=== PATIENT | male | born 1945 | race Caucasian/White ===

== ENCOUNTER 2022-02-18 17:39 | Observation (INO) | payer OTHER, SELFPAY ==
[2022-02-18] VITALS (17 sets, daily range): BP systolic 101–155; BP diastolic 60–86; PULSE 66–96; RESP 11–24; TEMP 35.8; O2SAT 95–98
--- NOTE | ~2022-02-18 | CT_ITS ---
EXAMINATION: CT brain wo con DATE: 02/18/2022 19:33 INDICATION: lethargy X 2 days, confusion . TECHNIQUE: Computed tomography (CT) of the head was performed without intravenous contrast. The mA wa s adjusted according to patient size. Iterative reconstruction technique was employed. The dose-lengt h product was 605.33 mGy-cm. COMPARISON: 07/28/2005 FINDINGS: No acute intracranial hemorrhage. CSF density prominent bifrontal extra-axial spaces as can be seen w ith chronic subdural hemorrhage and cystic hygroma. No hydrocephalus, mass, or herniation. No acute ischemic infarct. Unremarkable dural venous sinus attenuation. No acute osseous abnormality. The aerated spaces are clear. Mild atrophy. Mild chronic white matter change. Atherosclerotic intracranial calcification. Left lens replacement. IMPRESSION: No acute intracranial process. Reviewed, dictated and finalized at location K.
--- NOTE | ~2022-02-18 | XR_ITS ---
EXAMINATION: XR chest 2V Exam Date/Time: 02/18/2022 19:40 CDT HISTORY: cough, SOB Comparison: CT abdomen and pelvis, same date. RESULT: Lines, tubes, and devices: None. Lungs and pleura: Increased linear and patchy opacities in the retrocardiac lung. Stable linear righ t basilar opacities likely representing atelectasis. Cardiomediastinal silhouette: Stable. Other: No acute osseous or upper abdominal finding. IMPRESSION: Increased left lower lung/retrocardiac opacities may reflect increased atelectasis or interval aspira tion. Reviewed, dictated and finalized at location K. IMPRESSION: Increased left lower lung/retrocardiac opacities may reflect increased atelecta sis or interval aspiration.
--- NOTE | ~2022-02-18 | CT_ITS ---
EXAMINATION: CT abdomen pelvis w con DATE: 02/18/2022 19:39 INDICATION: LLQ ABD pain, diarrhea TECHNIQUE: Computed tomography (CT) of the abdomen and pelvis was performed with 100 mL Omnipaque-350 intravenous contrast. Automated exposure control and iterative reconstruction technique were employe d. The dose-length product was 1286.05 mGy-cm. COMPARISON: None. FINDINGS: Lower thorax: Senescent change and dependent atelectasis. Small pericardial effusion coronary artery calcification. Liver: Normal. Biliary/Gallbladder: Gallbladder is normal. No bile duct dilation. Pancreas: No mass or duct dilation. Fatty infiltration of the pancreatic head. Spleen: Normal. Adrenals:No mass. Kidneys: No mass, stone, or hydronephrosis. Mild atrophy. GI tract: Antral wall edema. Asymmetric masslike thickening of the lateral aspect of the gastric fund us and body. No small or large bowel dilation. Normal appendix. Diverticulosis without diverticulitis . Mesentery/Peritoneum: No ascites, mass, or free air. Retroperitoneum: No mass. Atherosclerotic abdominal aortic and/or arterial calcifications. Pelvis: Bladder wall thickening likely due to osseous outlet compromise from prostatomegaly. Prosthet ic calcifications.. Soft Tissues: Uncomplicated small fat-containing inguinal hernias Bones: No acute osseous finding. IMPRESSION: Small pericardial effusion. Antral gastritis. Lateral gastric wall thickening, may be secondary to la ck of distention or an infiltrative mass. Consider referral for endoscopy. Reviewed, dictated and finalized at location K. IMPRESSION: Small pericardial effusion. Antral gastritis. Lateral gastric wall thickening, may be secondary to lack of distention or an infiltrative mass. Consider referr al for endoscopy.
--- NOTE | 2022-02-18 17:51 | ECG_ITS ---
Measurements Intervals [place] Rate: 99 P: 34 RI: 187 QRS: -48 QRSD: 89 T: 39 QT: 344 QTc: 441 Interpretive Statements SINUS RHYTHM LEFT ANTERIOR FASCICULAR BLOCK [QRS AXIS <= -45, QR IN I, RS IN II] NONSPECIFIC ST & T-WAVE ABNORMALITY NO PREVIOUS ECG AVAILABLE FOR COMPARISON Electronically Signed On 02-18-2022 20:03:31 CDT by Elva Hassan M.D.
[2022-02-18 17:57] LABS: Basophils Percent Auto 0.4 % (0.2-1.2); Eosinophils Absolute Auto 0.1 K/mm3 (0-0.3); Eosinophils Percent Auto 0.9 % (0-4.4); Hemoglobin 16.4 g/dL (14.0-18.0); Immature Granulocyte Absolute 0.02 K/mm3 (0.00-0.031); Immature Granulocyte Percent A 0.2 % (0-0.5); Lymphocytes Absolute Auto 2.39 K/mm3 (0.9-3.2); Lymphocytes Percent Auto 29.1 % (18.3-44.2); Mean Corpuscular HGB Conc 33.5 g/dl (32-36); Mean Corpuscular Hemoglobin 27.6 pg (26-34); Mean Corpuscular Volume 82.5 fl (80-100); Mean Platelet Volume 11.1 fl (7.4-10.4); Monocytes Absolute Auto 0.8 K/mm3 (0.1-0.6); Monocytes Percent Auto 9.6 % (2.6-8.5); Neutrophils Absolute Auto 4.9 K/mm3 (1.3-6.7); Neutrophils Percent Auto 59.8 % (45.5-73.1); Platelet Count Result 211 k/mm3 (150-375); Red Blood Count 5.94 M/mm3 (4.6-6.20); Red Cell Distribution Width 16.6 % (11.5-14.5); White Blood Count 8.2 K/mm3 (4.5-10.0)
[2022-02-18 18:06] LABS: Alanine Aminotransferase 31 U/L (6-50); Albumin Level 4.4 g/dL (3.5-5.1); Alkaline Phosphatase 89 U/L (38-126); Anion Gap 15 mmol/L (8-16); Aspartate Amino Transferase 37 U/L (17-59); Bilirubin,Total 0.7 mg/dL (0.2-1.3); Blood Urea Nitrogen 39 mg/dL (9-20); Calcium 9.5 mg/dL (8.4-10.2); Carbon Dioxide 23 mmol/L (22-30); Chloride 104 mmol/L (98-107); Estimated CRCL calculation 60 ml/min; Estimated Glomerular Filt Rate > 60; Glucose 145 mg/dL (65-110); Potassium 3.1 mmol/L (3.4-5.0); Sodium 142 mmol/L (137-145)
[2022-02-18 18:07] LABS: Partial Thromboplastin Time 26.1 SECONDS (22.3-36.8); Prothrombin Time 13.2 Seconds (11.1-14.7)
--- NOTE | 2022-02-18 18:57 | ED.GENADULT ---
HPI - General Adult General Chief complaint: Weakness Stated complaint: weakness, black stools Time Seen by Provider: 02/18/22 18:18 Source: patient, family and old records reviewed Mode of arrival: ambulatory Limitations: clinical condition History of Present Illness HPI narrative: Patient is a 77-year-old male who presents to the ED with report of weakness. Patient son at bedside assisted in providing patient's information. Patient reportedly had his COVID booster vaccine 1 week ago. He began feeling unwell the next day. He has complained of abdominal pain, weakness, malaise, diarrhea, poor appetite, and diffuse pain to his son. Son brought him to the ED tonight. Patient is currently A&O x2 in the ED. Son reports this is abnormal for him and he is usually much sharper. Per patient's records, he does have a history of mild cognitive impairment. Son does also report patient has had black stools, but this was after patient took several doses of Pepto-Bismol. No bright red bleeding. Patient denies any chest pain or difficulty breathing at this time. Related Data Home Medications Medication Instructions Recorded Confirmed albuterol sulfate 90 mcg/actuation 2 inhalation inhalation Q4-6H PRN 10/31/19 02/19/22 aerosol inhaler Shortness Of Breath Or Wheezing aspirin 81 mg tablet,delayed 81 mg PO DAILY 10/31/19 02/19/22 release (Adult Low Dose Aspirin) budesonide-formoterol HFA 80 2 puff inhalation Q12H 10/31/19 02/19/22 mcg-4.5 mcg/actuation aerosol inhaler (Symbicort) cetirizine 10 mg tablet 5 mg PO DAILY PRN Allergy Symptoms 10/31/19 02/19/22 cholecalciferol (vitamin D3) 50 100 mcg PO DAILY 10/31/19 02/19/22 mcg (2,000 unit) tablet etodolac 400 mg tablet 200 mg PO BID 10/31/19 02/19/22 tiotropium bromide 1.25 2 puff inhalation DAILY 10/31/19 02/19/22 mcg/actuation mist for inhalation (Spiriva Respimat) acetaminophen 500 mg tablet 500 mg PO QHS 02/19/22 02/19/22 cilostazol 100 mg tablet 100 mg PO BID 02/19/22 02/19/22 methocarbamol 500 mg tablet 500 mg PO QID 02/19/22 02/19/22 pregabalin 150 mg capsule (Lyrica) 150 mg PO HS 02/19/22 02/19/22 Allergies Allergy/AdvReac Type Severity Reaction Status Date / Time codeine Allergy Unknown Unknown Verified 02/18/22 18:20 Review of Systems Review of Systems: CONSTITUTIONAL: Denies fever, chills, or sweats. CARDIOVASCULAR: Denies chest pain. RESPIRATORY: Denies dyspnea. GASTROINTESTINAL: Reports lower abdominal pain, diarrhea, black stool. Denies nausea, vomiting, rectal bleeding. MUSCULOSKELETAL: Reports pain all over. NEUROLOGIC: Reports slight confusion, generalized weakness. ROS unobtainable: Yes unobtainable due to medical condition PMFSH Past Medical History Medical History Benign essential hypertension BMI 40.0-44.9, adult Body mass index 45.0-49.9, adult Chronic obstructive pulmonary disease, unspecified Mild cognitive impairment with memory loss Mixed hyperlipidemia Morbid obesity Obstructive sleep apnea (adult) (pediatric) Surgical History Surgical History S/P peripheral artery angioplasty with stent placement Social History Social History Smoking status: Former smoker Tobacco type: cigarettes Smoking end date: 06/21/09 Alcohol intake: never Substance use: never Substance use type: does not use Spiritual care concerns: No Exam Narrative: GENERAL: Mildly ill appearing, obese, non-toxic, in no acute distress. HEAD: Normocephalic, atraumatic. EYES: PERRL/EOMI, conjunctivae clear bilaterally. No nystagmus. THROAT: Pharynx clear, no exudate. MMs dry. NECK: Supple. No adenopathy, no masses. RESPIRATORY: Airway patent, respirations nonlabored. Occasional rhonchi throughout bilateral lower lung riley. CARDIOVASCULAR: Regular rate and rhythm without murmurs, rubs, or gallop
[2022-02-18 19:50] LABS: NT Pro B Type Natriuretic Pept 69 pg/mL (5-100)
[2022-02-18 20:02] LABS: Troponin I 0.062 ng/mL (0.000-0.034)
[2022-02-18] MEDS: ONDANSETRON INJ 4 MG/2 ML VIAL IV PUSH (20:21)
[2022-02-18] MEDS: SODIUM CHLORIDE 0.9% IV 1,000 ML 999 ML IV CONT ×2 (20:21→22:05)
[2022-02-18] MEDS: POTASSIUM CHLORIDE INJ 40 MEQ in SODIUM CHLORIDE 0.9% IV 500 ML 130 MEQ IVPB (20:53)
[2022-02-18 22:20] LABS: Add Urine Microscopic? YES; Appearance Urine Clear (Clear); Bilirubin Urine 3+ (Negative); Blood Urine Negative (Negative); Color Urine Yellow (Yellow); Glucose Urine UA Negative (Negative); Ketones Urine Negative (Negative); Leukocyte Esterase Ur Negative LEU/UL (Negative); Nitrate Urine Negative (Negative); Protein Urine Trace mg/dL (Negative); Urobilinogen Urine 0.2 mg/dL (<2.0); pH Urine 5.5 (5.0-9.0)
[2022-02-18 22:24] LABS: Mucus Urine Few /lpf; RBC Urine 0-2 /hpf (0-2); Squamous Epithelial Cell Urine Rare /hpf (Few); WBC Urine 0-3 /hpf
[2022-02-18 22:28] LABS: Creatine Kinase 202 U/L (55-170)
[2022-02-18 22:35] LABS: D Dimer 0.67 ug/mL (<0.48)
[2022-02-18 22:54] LABS: Troponin I 0.064 ng/mL (0.000-0.034)
[2022-02-18 22:55] LABS: SARS-CoV-2 RNA PCR Positive
--- NOTE | 2022-02-18 23:26 | PM.IMHP ---
H&P: HPI History of Present Illness Date/Time: 02/18/22 23:26 Chief Complaint: Weakness Narrative: 77-year-old male with past medical history significant for COPD, dementia, hyperlipidemia, obstructive sleep apnea and hypertension is presenting with weakness. Patient received discovered booster about a week ago and began feeling unwell shortly after. Patient denies any chest pain or shortness of breath. He is complaining of abdominal pain with associated diarrhea, decreased p.o. intake, generalized weakness and malaise. Son is at bedside in the ER and provided some extra history. Apparently patient has had some black stools but no red blood per rectum. Son also states that although patient has a cognitive impairment at baseline, he usually is alert and oriented x3. In the ER, he was only alert and oriented x2 and unable to report the year. In the ER, he was given a L of fluids and seemed to improve. Fecal occult blood test was negative. Troponin was mildly elevated at 0.062, repeat 3 hours later was essentially unchanged at 0.064. Patient was found to be COVID positive in the ER and this was thought to be the etiology of his symptoms. However, due to the elevated troponin, it was thought the patient would need a cardiac evaluation. Patient is being admitted for Cardiology evaluation as well as supportive care for positive COVID status. Review of Systems Review of Systems: 12 point review of systems was assessed and was negative except as noted in the HPI [facility] Past Medical History Medical History Benign essential hypertension BMI 40.0-44.9, adult Body mass index 45.0-49.9, adult Chronic obstructive pulmonary disease, unspecified Mild cognitive impairment with memory loss Mixed hyperlipidemia Morbid obesity Obstructive sleep apnea (adult) (pediatric) Surgical History Surgical History S/P peripheral artery angioplasty with stent placement Social History Social History Smoking status: Former smoker Tobacco type: cigarettes Smoking end date: 06/21/09 Alcohol intake: never Substance use: never Substance use type: does not use Spiritual care concerns: No Meds Home Medications and Allergies Home Medications Medication Instructions Recorded Confirmed Type albuterol sulfate 90 mcg/actuation 2 inhalation inhalation Q4-6H PRN 10/31/19 02/19/22 History aerosol inhaler Shortness Of Breath Or Wheezing aspirin 81 mg tablet,delayed 81 mg PO DAILY 10/31/19 02/19/22 History release (Adult Low Dose Aspirin) budesonide-formoterol HFA 80 2 puff inhalation Q12H 10/31/19 02/19/22 History mcg-4.5 mcg/actuation aerosol inhaler (Symbicort) cetirizine 10 mg tablet 5 mg PO DAILY PRN Allergy Symptoms 10/31/19 02/19/22 History cholecalciferol (vitamin D3) 50 100 mcg PO DAILY 10/31/19 02/19/22 History mcg (2,000 unit) tablet etodolac 400 mg tablet 200 mg PO BID 10/31/19 02/19/22 History omeprazole 20 mg capsule,delayed 40 mg PO DAILY 10/31/19 02/19/22 History release tiotropium bromide 1.25 2 puff inhalation DAILY 10/31/19 02/19/22 History mcg/actuation mist for inhalation (Spiriva Respimat) acetaminophen 500 mg tablet 500 mg PO QHS 02/19/22 02/19/22 History amlodipine 5 mg tablet 5 mg PO DAILY 02/19/22 02/19/22 History cilostazol 100 mg tablet 100 mg PO BID 02/19/22 02/19/22 History methocarbamol 500 mg tablet 500 mg PO QID 02/19/22 02/19/22 History pregabalin 150 mg capsule (Lyrica) 150 mg PO HS 02/19/22 02/19/22 History Allergies Allergy/AdvReac Type Severity Reaction Status Date / Time codeine Allergy Unknown Unknown Verified 02/18/22 18:20 Vital Signs Vital Signs - 24 hr 02/18/22 17:44 02/18/22 18:19 02/18/22 18:23 Temperature 96.4 F L Pulse Rate 94 93 89 Respiratory Rate 18 22 H Blood Pressure 144/75 H P
[2022-02-19] VITALS (14 sets, daily range): BP systolic 99–172; BP diastolic 55–82; PULSE 61–81; RESP 16–88; TEMP 36.4–36.9; O2SAT 94–99; BMI 42.2
--- NOTE | 2022-02-19 | ECHO_ITS ---
Patient Info Name: Nile Fermin Age: 77 years : 1945 Gender: Male Ht: 65 in Wt: 253 lbs BSA: 2.35 m2 HR: 92 bpm BP: 99 / 66 mmHg Heart Rhythm: Sinus Rhythm Technical Quality: Poor Exam Date: 02/19/2022 3:01 PM Exam Location: [facility] Pul[facility] Exam Room: [facility]– [place] Patient Status: Inpatient Admit Date: 02/18/2022 Staff Ordering Physician: Tyree Tejeda MD Dockmaster: Josefina Sofia RDCS Attending Provider: Lulu Tracy Referring Physician: Ileana FITZPATRICK; Exam Type: CA echo dop color flow w con Study Info Indications - oericardial effusion elevated troponins covid Complete two-dimensional, color flow and Doppler transthoracic echocardiogram is performed with contrast to opacify the left ventricle and to improve the deliniation of the left ventricle endocardial borders. Contrast/Agitated Saline Contrast/Ag. Saline: Definity Amount: 2.00 ml Administered By: Josefina Sofia [facility] Existing IV Access: Yes IV Access Condition: patent with no signs of infiltration Reason for Poor Study: patient body habitus Summary 1. Normal left ventricular size with mild concentric hypertrophy. Good systolic function of all segments with an ejection fraction of 71%. No segmental wall motion abnormalities. Diastolic function indeterminate. 2. Mild right ventricular enlargement and hypokinesis. 3. Calcified aortic root. 4. No significant valve disease. 5. Mild right ventricular systolic pressure is 32 mmHg. 6. Normal sinus rhythm. 7. Technically difficult study; limited views. Left Ventricle Left ventricular chamber dimension is normal. Left ventricular systolic function is normal, estimated at 65-70%. There is mildly increased left ventricular wall thickness. Left ventricular septal wall motion is normal. The left ventricular diastolic function is indeterminate. Right Ventricle Right ventricular chamber dimension is mildly enlarged. Right ventricular systolic function is reduced. Left Atria Left atrial chamber dimension is normal. Right Atria Right atrial chamber dimension is normal. Aortic Valve The aortic valve is trileaflet. There is no aortic valve sclerosis. There is no aortic valve stenosis. There is no aortic valve regurgitation. Pulmonic Valve The pulmonic valve is normal. There is no pulmonic valve stenosis. There is trace pulmonic regurgitation. Mitral Valve The mitral valve has normal leaflets. There is no mitral valve stenosis. There is trace mitral valve regurgitation. Tricuspid Valve The tricuspid valve leaflets are normal. There is no significant tricuspid valve stenosis. There is trace tricuspid valve regurgitation. No pulmonary hypertension, estimated pulmonary arterial systolic pressure is 33 mmHg. Pericardium/Pleural The pericardium appears normal. There is no pericardial effusion. Inferior Vena Cava Not well visualized inferior vena cava with >50% collapse upon inspiration consistent with Empty right atrial pressure, 10 mmHg. Aorta The aortic root size at the sinus of Valsalva is normal. The prox ascending aorta size is normal. There is mild aortic atherosclerosis. Left Ventricular Outflow Tract Name Value Normal LVOT 2D
--- NOTE | 2022-02-19 01:29 | ADMGEN ---
This patient, Nile Fermin, was admitted to IMU Room 232-01. Patient/family oriented to hospital policies and general routines including ID bracelet, bed and alarms, visiting hours, pain management, procedures, bathroom and other care routines, personal items, smoking policy, room service/diet, and visiting hours. Information on how to activate the Rapid Response Team has been discussed. Patient/Family are encouraged to report perceived risks to care and to ask questions if they do not understand what they are told or what they should do.
[2022-02-19] MEDS: oxyCODONE/ACETAMINOPHEN (*CRX) 5-325 MG TABLET 1 TABLET PO (02:07)
[2022-02-19 02:19] LABS: Troponin I 0.051 ng/mL (0.000-0.034)
[2022-02-19] MEDS: SODIUM CHLORIDE 0.9% IV 1,000 ML 100 ML IV CONT ×2 (07:58→17:22)
[2022-02-19] MEDS: CHOLECALCIFEROL 1,000 UNITS TABLET 4000 UNITS PO (07:59)
[2022-02-19] MEDS: methocarbamoL 500 MG TABLET PO ×4 (08:00→20:39)
[2022-02-19] MEDS: cilostazoL 100 MG TABLET PO ×2 (08:00→17:21)
[2022-02-19] MEDS: ASPIRIN 81 MG ENTERIC TABLET PO (08:01)
[2022-02-19] MEDS: amLODIPine BESYLATE 5 MG TABLET PO (08:01)
[2022-02-19] MEDS: ENOXAPARIN 40 MG/0.4 ML SYRINGE SUB-Q (08:01)
[2022-02-19] MEDS: LORATADINE 5 MG TABLET PO (08:01)
[2022-02-19] MEDS: PANTOPRAZOLE 40 MG TABLET PO (08:01)
[2022-02-19] MEDS: UMECLIDINIUM BROMIDE 62.5 MCG ELLIPTA 1 PUFF INHALATION (08:33)
[2022-02-19] MEDS: FLUTICASONE/SALMETEROL 45-21 MCG INHALER 1 PUFF 2 PUFF INHALATION ×2 (08:33→21:30)
[2022-02-19 08:37] LABS: Basophils Absolute Auto 0.1 K/mm3 (0.0-0.1); Basophils Percent Auto 0.7 % (0.2-1.2); Eosinophils Absolute Auto 0.1 K/mm3 (0-0.3); Eosinophils Percent Auto 1.2 % (0-4.4); Hematocrit 43.7 % (42.0-52.0); Hemoglobin 14.2 g/dL (14.0-18.0); Immature Granulocyte Absolute 0.01 K/mm3 (0.00-0.031); Immature Granulocyte Percent A 0.1 % (0-0.5); Lymphocytes Absolute Auto 2.43 K/mm3 (0.9-3.2); Lymphocytes Percent Auto 35.2 % (18.3-44.2); Mean Corpuscular HGB Conc 32.5 g/dl (32-36); Mean Corpuscular Hemoglobin 27.2 pg (26-34); Mean Corpuscular Volume 83.6 fl (80-100); Mean Platelet Volume 11.1 fl (7.4-10.4); Monocytes Absolute Auto 0.8 K/mm3 (0.1-0.6); Monocytes Percent Auto 11.4 % (2.6-8.5); Neutrophils Absolute Auto 3.6 K/mm3 (1.3-6.7); Neutrophils Percent Auto 51.4 % (45.5-73.1); Platelet Count Result 157 k/mm3 (150-375); Red Blood Count 5.23 M/mm3 (4.6-6.20); Red Cell Distribution Width 15.8 % (11.5-14.5); White Blood Count 6.9 K/mm3 (4.5-10.0)
[2022-02-19 08:51] LABS: Anion Gap 12 mmol/L (8-16); Blood Urea Nitrogen 28 mg/dL (9-20); CRP < 0.5 mg/dL (<1.0); Calcium 8.8 mg/dL (8.4-10.2); Carbon Dioxide 21 mmol/L (22-30); Chloride 109 mmol/L (98-107); Estimated CRCL calculation 79 ml/min; Estimated Glomerular Filt Rate > 60; Glucose 95 mg/dL (65-110); Potassium 3.4 mmol/L (3.4-5.0); Sodium 142 mmol/L (137-145)
--- NOTE | 2022-02-19 09:17 | PM.CNCAR ---
Assessment and Plan Assessment and plan (1) COVID-19: Code(s): U07.1 - COVID-19 Status: Acute (2) Elevated troponin: Code(s): R77.8 - Other specified abnormalities of plasma proteins Status: Acute (3) S/P peripheral artery angioplasty with stent placement: Code(s): Z95.820 - Peripheral vascular angioplasty status with implants and grafts Status: Acute (4) Obstructive sleep apnea (adult) (pediatric): Code(s): G47.33 - Obstructive sleep apnea (adult) (pediatric) Status: Acute (5) Mixed hyperlipidemia: Code(s): E78.2 - Mixed hyperlipidemia Status: Acute (6) Chronic obstructive pulmonary disease, unspecified: Code(s): J44.9 - Chronic obstructive pulmonary disease, unspecified Status: Acute (7) Benign essential hypertension: Code(s): I10 - Essential (primary) hypertension Status: Acute (8) Obesity (BMI 30-39.9): Code(s): E66.9 - Obesity, unspecified Status: Acute History of Present Illness History of Present Illness Consult date/time: 02/19/22 09:17 Requesting physician: Lulu Tracy APN-C Consult reason: Other (elevated trop) Reason For Visit: COVID-19,Generalized weakness,Elevated Troponin Narrative: 77-year-old patient with past medical history of hearing loss, dementia, COPD, sleep apnea, hypertension presents to the hospital with not feeling well and tested positive for COVID. Apparently patient received booster dose about a week ago and started to feel shortly after that weakness and unwell. Denied chest pain or shortness of breath. Was complaining of some abdominal pain and diarrhea, generalized weakness, loss of appetite. Reported that he had also black stools but no blood per rectum. Reported in the ER that he was alert oriented x2 and was not able to mention what year was. Chest x-ray reviewed analyzed myself shows opacity in the left lower lobe that could represent aspiration. CT scan of abdomen and pelvis showed small pericardial effusion. EKG reviewed analyze myself shows sinus rhythm, possible old inferior SC, no ischemic changes. BUN 39, creatinine 1, normal hemoglobin and white cell count Troponins mildly elevated 0.062, 0.064, 0.051 Review of Systems Review of Systems: ROS unobtainable: Yes unobtainable due to mental status and other ( history of dementia and patient cannot hear anything.) [facility] Past Medical History Medical History Benign essential hypertension BMI 40.0-44.9, adult Body mass index 45.0-49.9, adult Chronic obstructive pulmonary disease, unspecified Mild cognitive impairment with memory loss Mixed hyperlipidemia Morbid obesity Obstructive sleep apnea (adult) (pediatric) Surgical History Surgical History S/P peripheral artery angioplasty with stent placement Social History Social History Smoking status: Former smoker Tobacco type: cigarettes Smoking end date: 06/21/09 Alcohol intake: never Substance use: never Substance use type: does not use Spiritual care concerns: No Meds Home Medications and Allergies Home Medications Medication Instructions Recorded Confirmed Type albuterol sulfate 90 mcg/actuation 2 inhalation inhalation Q4-6H PRN 10/31/19 02/19/22 History aerosol inhaler Shortness Of Breath Or Wheezing aspirin 81 mg tablet,delayed 81 mg PO DAILY 10/31/19 02/19/22 History release (Adult Low Dose Aspirin) budesonide-formoterol HFA 80 2 puff inhalation Q12H 10/31/19 02/19/22 History mcg-4.5 mcg/actuation aerosol inhaler (Symbicort) cetirizine 10 mg tablet 5 mg PO DAILY PRN Allergy Symptoms 10/31/19 02/19/22 History cholecalciferol (vitamin D3) 50 100 mcg PO DAILY 10/31/19 02/19/22 History mcg (2,000 unit) tablet etodolac 400 mg tablet 200 mg PO BID 10/31/19 02/19/22 Histo
[2022-02-19] MEDS: ALBUTEROL SULFATE (*SP) AEROSOL 1 PUFF 2 PUFF INHALATION ×2 (10:11→21:41)
[2022-02-19] MEDS: PERFLUTREN LIPID MICROSPHERES 1.5 ML VIAL DILUTED TO 10 ML TOTAL VOLUME IV PUSH (14:55)
--- NOTE | 2022-02-19 15:10 | PM.IMPN ---
Progress Note: A&P Assessment and Plan (1) COVID-19: Code(s): U07.1 - COVID-19 Status: Acute Assessment and Plan: - Continue supportive care. - Not currently requiring supplemental oxygenation. - Dimer is elevated at 0.67, but can be adjusted for age according to protocol and is below the cutoff, and given that his respiratory status is stable, no further testing for VTE is needed. - CRP is low. - Trop is elevated, cardiology has evaluated and has ordered an ECHO, Ischemic evaluation that can be done as outpatient once he recovers from covid. They recommend continuation of ASA, amlodipine and to continue pletal. - Continue IVF NS at 100 ml/hr for now, appears euvolemic. (2) Generalized weakness: Code(s): R53.1 - Weakness Status: Acute Assessment and Plan: - In setting of being COVID positive. - Supportive care only. (3) Elevated troponin: Code(s): R77.8 - Other specified abnormalities of plasma proteins Status: Acute Assessment and Plan: - Trop is elevated, cardiology has evaluated and has ordered an ECHO, Ischemic evaluation that can be done as outpatient once he recovers from covid. They recommend continuation of ASA, amlodipine and to continue pletal. (4) Obstructive sleep apnea (adult) (pediatric): Code(s): G47.33 - Obstructive sleep apnea (adult) (pediatric) Status: Acute Assessment and Plan: - Home CPAP settings. (5) Mild cognitive impairment with memory loss: Code(s): G31.84 - Mild cognitive impairment, so stated Status: Chronic Assessment and Plan: - Difficult to obtain ROS;. (6) Mixed hyperlipidemia: Code(s): E78.2 - Mixed hyperlipidemia Status: Acute Assessment and Plan: - Heart healthy diet. (7) Chronic obstructive pulmonary disease, unspecified: Code(s): J44.9 - Chronic obstructive pulmonary disease, unspecified Status: Acute Assessment and Plan: - Continue home medications. (8) Benign essential hypertension: Code(s): I10 - Essential (primary) hypertension Status: Acute Assessment and Plan: - Currently well controlled (9) Obesity (BMI 30-39.9): Code(s): E66.9 - Obesity, unspecified Status: Acute Assessment and Plan: - Heart healthy diet. - Recommend lifestyle changes. (10) Osteoarthritis, generalized: Code(s): M15.9 - Polyosteoarthritis, unspecified Status: Chronic Assessment and Plan: - prn pain treatment as needed. Time Spent With Patient Time with patient: 15 - 25 minutes Subjective Date/time seen: 02/19/22 1022 This pt. was examined at the bedside today in interval assessment after being admitted to the hospital with COVID and also having a complaint of blood in his stool. He has no current complaints today with exception of his persistent cough and congestion in his chest. He denies any further bloody stools and he denies any CP, dyspnea, N/V/D/headache, dizziness, lightheadedness. Review of Systems Review of Systems: All systems reviewed & are unremarkable except as noted in HPI and below Exam Const: General: comfortable and no acute distress HENMT: Ears: TM's normal bilaterally General nose exam: Normal nares present Mouth: Yes moist mucous membranes Eyes: General: appearance normal, both eyes and all related structures Sclera: sclerae normal Pupils: Equal, round and reactive pupils present EOM: EOMs intact bilaterally Neck: Neck: supple and no JVD Thyroid: thyroid normal Resp: Effort & Inspection: normal respiratory effort Auscultation: crackles on the right at the base, on the left at the base and bilateral and rhonchi throughout Cardio: Rate: regular rate Rhythm: regular rhythm Heart sounds: no gallops, no murmurs and no rubs GI: Inspection: non-distended GI Palp: Yes Soft to palpation, No Tenderness to palpation present (GI) and No Guarding due to palpation present (GI) Auscul
--- NOTE | 2022-02-19 17:32 | PC.NURSE ---
ORDERS TO TRANSFER TO [facility] / TELE - REPORT GIVEN TO UMESH DUNBAR RN- PT TRANSFERRED TO ROOM 258 VIA BED ACCOMPANIED BY STAFF- PERSONAL BELONGINGS WITH PT -
[2022-02-19] MEDS: PREGABALIN (*CRX) 75 MG CAPSULE 150 MG PO (20:35)
[2022-02-19] MEDS: ACETAMINOPHEN 500 MG TABLET PO (20:38)
[2022-02-20] VITALS (13 sets, daily range): BP systolic 140–182; BP diastolic 61–76; PULSE 57–88; RESP 16–20; TEMP 36.1–36.8; O2SAT 94–98
[2022-02-20] MEDS: amLODIPine BESYLATE 5 MG TABLET PO (05:21)
[2022-02-20 05:42] LABS: Basophils Percent Auto 0.4 % (0.2-1.2); Eosinophils Absolute Auto 0.1 K/mm3 (0-0.3); Eosinophils Percent Auto 2.2 % (0-4.4); Hematocrit 37.7 % (42.0-52.0); Hemoglobin 12.3 g/dL (14.0-18.0); Immature Granulocyte Absolute 0.01 K/mm3 (0.00-0.031); Immature Granulocyte Percent A 0.2 % (0-0.5); Immature Platelet Fraction Pct 5.9 % (0.9-11.2); Lymphocytes Absolute Auto 1.73 K/mm3 (0.9-3.2); Lymphocytes Percent Auto 34.1 % (18.3-44.2); Mean Corpuscular HGB Conc 32.6 g/dl (32-36); Mean Corpuscular Hemoglobin 27.6 pg (26-34); Mean Corpuscular Volume 84.7 fl (80-100); Mean Platelet Volume 10.5 fl (7.4-10.4); Monocytes Absolute Auto 0.6 K/mm3 (0.1-0.6); Monocytes Percent Auto 11.6 % (2.6-8.5); Neutrophils Absolute Auto 2.6 K/mm3 (1.3-6.7); Neutrophils Percent Auto 51.5 % (45.5-73.1); Platelet Count Result 131 k/mm3 (150-375); Red Blood Count 4.45 M/mm3 (4.6-6.20); Red Cell Distribution Width 15.7 % (11.5-14.5); White Blood Count 5.1 K/mm3 (4.5-10.0)
[2022-02-20 06:07] LABS: Alanine Aminotransferase 22 U/L (6-50); Albumin Level 3.1 g/dL (3.5-5.1); Alkaline Phosphatase 62 U/L (38-126); Anion Gap 7 mmol/L (8-16); Aspartate Amino Transferase 21 U/L (17-59); Bilirubin,Total 0.5 mg/dL (0.2-1.3); Blood Urea Nitrogen 15 mg/dL (9-20); Calcium 8.2 mg/dL (8.4-10.2); Carbon Dioxide 21 mmol/L (22-30); Chloride 113 mmol/L (98-107); Estimated CRCL calculation 89 ml/min; Estimated Glomerular Filt Rate > 60; Glucose 90 mg/dL (65-110); Lipase 67 U/L (23-300); Magnesium 1.8 mg/dL (1.6-2.3); Potassium 3.1 mmol/L (3.4-5.0); Sodium 141 mmol/L (137-145)
[2022-02-20] MEDS: CHOLECALCIFEROL 1,000 UNITS TABLET 4000 UNITS PO (09:12)
[2022-02-20] MEDS: cilostazoL 100 MG TABLET PO ×2 (09:12→17:01)
[2022-02-20] MEDS: methocarbamoL 500 MG TABLET PO ×4 (09:13→20:08)
[2022-02-20] MEDS: PANTOPRAZOLE 40 MG TABLET PO (09:13)
[2022-02-20] MEDS: LORATADINE 5 MG TABLET PO (09:13)
[2022-02-20] MEDS: ENOXAPARIN 40 MG/0.4 ML SYRINGE SUB-Q (09:13)
[2022-02-20] MEDS: ASPIRIN 81 MG ENTERIC TABLET PO (09:13)
[2022-02-20] MEDS: UMECLIDINIUM BROMIDE 62.5 MCG ELLIPTA 1 PUFF INHALATION (09:14)
[2022-02-20] MEDS: FLUTICASONE/SALMETEROL 45-21 MCG INHALER 1 PUFF 2 PUFF INHALATION ×2 (09:14→21:00)
[2022-02-20] MEDS: SODIUM CHLORIDE 0.9% IV 1,000 ML 100 ML IV CONT (12:20)
[2022-02-20] MEDS: POTASSIUM CHLORIDE 20 MEQ TABLET 40 MEQ PO (14:40)
--- NOTE | 2022-02-20 16:25 | PM.IMPN ---
Progress Note: A&P Assessment and Plan (1) COVID-19: Code(s): U07.1 - COVID-19 Status: Acute Assessment and Plan: - Continue supportive care. - Continue COVID19 specific isolation. - Not currently requiring supplemental oxygenation. - Dimer is elevated at 0.67, unlikely PE when adjusted for age, no further testing for VTE is needed. - CRP is low. - Trop is elevated, cardiology has evaluated and outpatient ischemic work up recommended once he recovers from covid. - Saline lock IVF (2) Generalized weakness: Code(s): R53.1 - Weakness Status: Acute Assessment and Plan: - In setting of being COVID positive. - Supportive care only. - Consult PT/OT. Patient wants to return home. (3) Elevated troponin: Code(s): R77.8 - Other specified abnormalities of plasma proteins Status: Acute Assessment and Plan: - Trop is elevated - cardiology consulted and appreciate recommendations. - Transthoracic ECHO- mild LVH, EF 71%, diastolic dysfunction indeterminate, enlarged RV with hypokinesis, RVSP 32 mmHg. - EKG with SR and Q-waves inferior leads. - Ischemic evaluation outpatient once he recovers from covid. - continue ASA, amlodipine and cilostazol - No active chest pain (4) Obstructive sleep apnea (adult) (pediatric): Code(s): G47.33 - Obstructive sleep apnea (adult) (pediatric) Status: Acute Assessment and Plan: - Continue CPAP at home settings. (5) Mild cognitive impairment with memory loss: Code(s): G31.84 - Mild cognitive impairment, so stated Status: Chronic Assessment and Plan: - appears baseline. - Monitor (6) Mixed hyperlipidemia: Code(s): E78.2 - Mixed hyperlipidemia Status: Acute Assessment and Plan: - Heart healthy diet. - check lipid panel (7) Chronic obstructive pulmonary disease, unspecified: Code(s): J44.9 - Chronic obstructive pulmonary disease, unspecified Status: Acute Assessment and Plan: - Continue home spiriva and symbicort. - Monitior respiratory status. (8) Benign essential hypertension: Code(s): I10 - Essential (primary) hypertension Status: Acute Assessment and Plan: - Stable - Continue home medications (9) Obesity (BMI 30-39.9): Code(s): E66.9 - Obesity, unspecified Status: Acute Assessment and Plan: - Heart healthy diet. - Recommend lifestyle changes. (10) Osteoarthritis, generalized: Code(s): M15.9 - Polyosteoarthritis, unspecified Status: Chronic Assessment and Plan: - prn pain treatment as needed. Plan CODE STATUS: full code Disposition: home or home with home health Time Spent With Patient Time with patient: 15 - 25 minutes Subjective Date/time seen: 02/20/22 16:25 Interval history: Patient is a 77 yo male with medical history of COPD, ELODIA, dementia, HTN, PAD s/p stent, and HLD. He presented to the ED for evaluation of weakness following covid19 booster on 02/18. Patient was found to have positive COVID19 PCR and elevated troponin.? Patient was found lying in bed. He reports feeling better overall. He has not been out of bed much, however. He wants to go home, but lives alone. No chest pain, dizziness, diarrhea, N/V, abd pain or anorexia. He thinks his breathing is better. No O2 needs or fever overnight. Review of Systems Review of Systems: All systems reviewed & are unremarkable except as noted in HPI and below Exam Narrative: General: No acute distress, Sitting up in bed. Non-toxic appearing. HEENT: Atraumatic, normocephalic, mucous membranes moist. Pupils equal and round. Very [place]. Neck: No JVD. Heart: Regular rate and rhythm, S1, S2. No murmur, gallop or rub. Lungs: Clear to auscultation bilaterally, rhonchi with faint exp wheezing bilateral lower lobes. No crackles or retractions. Abdomen: Soft, obese, nontender, and nond
[2022-02-20] MEDS: ACETAMINOPHEN 500 MG TABLET PO (20:08)
[2022-02-20] MEDS: PREGABALIN (*CRX) 75 MG CAPSULE 150 MG PO (20:08)
[2022-02-21] VITALS: PULSE 77
[2022-02-21 04:00] VITALS: PULSE 67
[2022-02-21 04:56] LABS: Hematocrit 38.1 % (42.0-52.0); Hemoglobin 12.5 g/dL (14.0-18.0); Mean Corpuscular HGB Conc 32.8 g/dl (32-36); Mean Corpuscular Hemoglobin 27.4 pg (26-34); Mean Corpuscular Volume 83.4 fl (80-100); Mean Platelet Volume 11.1 fl (7.4-10.4); Platelet Count Result 143 k/mm3 (150-375); Red Blood Count 4.57 M/mm3 (4.6-6.20); Red Cell Distribution Width 15.4 % (11.5-14.5); White Blood Count 5.3 K/mm3 (4.5-10.0)
[2022-02-21 05:28] LABS: Anion Gap 10 mmol/L (8-16); Blood Urea Nitrogen 10 mg/dL (9-20); Calcium 8.5 mg/dL (8.4-10.2); Carbon Dioxide 25 mmol/L (22-30); Chloride 106 mmol/L (98-107); Cholesterol 124 mg/dL (0-200); Estimated CRCL calculation 83 ml/min; Estimated Glomerular Filt Rate > 60; Glucose 95 mg/dL (65-110); HDL Direct 37 mg/dL; Potassium 3.3 mmol/L (3.4-5.0); Sodium 141 mmol/L (137-145); Triglycerides 166 mg/dL (<150)
[2022-02-21 05:39] LABS: LDL Cholesterol Direct 43 mg/dL
[2022-02-21 05:40] VITALS: BP 159/63; PULSE 67; RESP 18; TEMP 36.6; O2SAT 96
[2022-02-21 08:00] VITALS: BP 159/61; PULSE 78; PULSE 84; RESP 20; TEMP 36.2; O2SAT 95
[2022-02-21] MEDS: ALBUTEROL SULFATE NEB 2.5 MG/0.5 ML INH (08:28)
[2022-02-21] MEDS: UMECLIDINIUM BROMIDE 62.5 MCG ELLIPTA 1 PUFF INHALATION (08:28)
[2022-02-21] MEDS: FLUTICASONE/SALMETEROL 45-21 MCG INHALER 1 PUFF 2 PUFF INHALATION (08:28)
[2022-02-21] MEDS: ENOXAPARIN 40 MG/0.4 ML SYRINGE SUB-Q (09:09)
[2022-02-21] MEDS: PANTOPRAZOLE 40 MG TABLET PO (09:10)
[2022-02-21] MEDS: cilostazoL 100 MG TABLET PO (09:10)
[2022-02-21] MEDS: amLODIPine BESYLATE 5 MG TABLET 10 MG PO (09:11)
[2022-02-21] MEDS: LORATADINE 5 MG TABLET PO (09:11)
[2022-02-21] MEDS: ASPIRIN 81 MG ENTERIC TABLET PO (09:11)
[2022-02-21] MEDS: methocarbamoL 500 MG TABLET PO (09:11)
[2022-02-21] MEDS: CHOLECALCIFEROL 1,000 UNITS TABLET 4000 UNITS PO (09:11)
[2022-02-21] MEDS: POTASSIUM CHLORIDE 20 MEQ TABLET 40 MEQ PO (09:16)
--- NOTE | 2022-02-22 17:29 | PM.DS ---
DS: Admitting Diagnosis Discharge Date 02/21/22 1124 Admitting Diagnosis COVID19 positive Generalized weakness Elevated troponin DS: Discharge Diagnosis Discharge Diagnosis (1) COVID-19: Code(s): U07.1 - COVID-19 Status: Acute Assessment and Plan: - CoVID19 positive on admission. - treated with supportive care and COVID19 specific isolation. - No supplemental oxygen requirements. - Dimer is elevated at 0.67, but unlikely PE when adjusted for age, no further testing for VTE is needed. - CRP is low. - Trop is elevated, cardiology has evaluated and outpatient ischemic work up recommended once he recovers from covid. - Treated with IV fluids initially and dc'd when oral intake imprved. (2) Generalized weakness: Code(s): R53.1 - Weakness Status: Acute Assessment and Plan: - In setting of being COVID positive. - Consult PT/OT. Patient wants to return home. No home health needed - Patient was assessed and his prior level of functioning. (3) Elevated troponin: Code(s): R77.8 - Other specified abnormalities of plasma proteins Status: Acute Assessment and Plan: - Troponin I 0.062- 0.064- 0.059 - cardiology consulted and appreciate recommendations- recommend outpatient ischemic workup - Transthoracic ECHO- mild LVH, EF 71%, diastolic dysfunction indeterminate, enlarged RV with hypokinesis, RVSP 32 mmHg. - EKG with SR and Q-waves inferior leads. - continue ASA, amlodipine and cilostazol - No active chest pain DS: Summary Hospital Course Reason for hospitalization: Weakness Hospital Course: Nile Fermin is a 77-year-old male with past medical history significant for COPD, dementia, hyperlipidemia, obstructive sleep apnea and hypertension. He presented to the ED for evaluation of weakness.? Patient received COVID19 booster about a week ago and began feeling unwell shortly after.? Patient denied chest pain or shortness of breath.? He c/o abdominal pain with associated diarrhea, decreased p.o. intake, generalized weakness and malaise.?Apparently patient has had some black stools but no red blood per rectum.? Son also states that although patient has a cognitive impairment at baseline, he usually is alert and oriented x3.? In the ER, he was only alert and oriented x2 and unable to report the year. In the ER, he was given a L of fluids and seemed to improve.? Fecal occult blood test was negative.? Troponin was mildly elevated at 0.062, repeat 3 hours later was essentially unchanged at 0.064.? Patient was found to be COVID positive in the ER and this was thought to be the etiology of his symptoms.? However, due to the elevated troponin, it was thought the patient would need a cardiac evaluation.? Patient was admitted for Cardiology evaluation as well as supportive care for positive COVID status. He was placed in COVID19 isolation. He did not require supplemental O2, so Remdesivir and dexamethasone were not initiated. He was treated with IV hydration for presumed dehydration. Cardiology was consulted. Transthoracic echocardiogram was obtained and showed mild LVH, EF 71%, diastolic dysfunction indeterminate, enlarged RV with hypokinesis, RVSP 32 mmHg. Cardiology recommended outpatient ischemic workup. PT/OT was consulted and the patient did well. He did not appear to require home assistance or SNF placement. The patient was discharged home in stable condition without complaints. He was counseled on medications, quarantine and when to seek further care. Status at Discharge Cognitive/behavioral status at discharge: Alert and oriented x3, forgetful. Cooperative. Functional status at discharge: independent ambulation Overall status at discharge: patient is back to baseline Time Spent with Patient Time attestation: Total time spent providing and/or coordinating discharge services: Time spent: Greater than 30 minutes Exam Narrative: General: No acute distress, Sittin
== END 2022-02-21 12:05 | disposition home or self-care (01) ==
LOC: ANHED 23:23 → ANHIMU 02-19 00:07 → ANH2MED 02-20 10:00 → ANHIMU 02-24 11:11
PROVIDERS: Nurse Practitioner Adult Health; Physician Assistant; Admitting Provider Student in an Organized Health Care Education/Training Program; Emergency Provider Emergency Medicine; Visit Provider Nurse Practitioner Family
DX: U07.1 COVID-19 (principal); R53.1 Weakness; R77.8 Other specified abnormalities of plasma proteins; R10.9 Unspecified abdominal pain; R19.7 Diarrhea, unspecified; I10 Essential (primary) hypertension; J44.9 Chronic obstructive pulmonary disease, unspecified; E78.2 Mixed hyperlipidemia; G47.33 Obstructive sleep apnea (adult) (pediatric); G31.84 Mild cognitive impairment of uncertain or unknown etiology; M15.9 Polyosteoarthritis, unspecified; E66.01 Morbid (severe) obesity due to excess calories; Z68.37 Body mass index [BMI] 37.0-37.9, adult; Z79.51 Long term (current) use of inhaled steroids; Z79.82 Long term (current) use of aspirin; Z95.820 Peripheral vascular angioplasty status with implants and grafts; Z87.891 Personal history of nicotine dependence
CPT/HCPCS: 36415; 70450; 71046; 74177; 80048; 80053; 80061; 81001; 82550; 83690; 83735; 83880; 84484; 85025; 85027; 85055; 85380; 85610; 85730; 86140; 86850; 86900; 86901; 93005; 94640; 96361; 96365; 96366; 96368; 96372; 96375; 97161; 97165; 99285; A9270; C8929; C9803; G0378; J0131; J1650; J2405; J3480; J7030; J7040; Q9957; Q9967; U0003; U0005